=== PATIENT | female | born 1935 | race Caucasian/White ===

== ENCOUNTER → 2016-08-24 | Outpatient (REF) | payer MEDICARE ==
[2016-08-24 15:40] LABS: BASOPHILS % (AUTO) 0 % (0-2); EOSINOPHILS # (AUTO) 0.3 10^3uL; EOSINOPHILS % (AUTO) 2 % (0-4); LYMPHOCYTES # (AUTO) 3.4 X10^3; MEAN CORPUSCULAR HGB CONC 33.1 g/dL (31.0-37.0); MEAN CORPUSCULAR VOLUME 88 FL (80-100); MEAN PLATELET VOLUME 11.1 FL (6.0-9.5); MONOCYTES # (AUTO) 1.4 X10^3; MONOCYTES % (AUTO) 11 % (3-11); NEUTROPHILS # (AUTO) 7.8 X10^3; NEUTROPHILS % (AUTO) 60 % (51-67); PLATELET COUNT 345 10^3uL (150-450); WHITE BLOOD COUNT 12.89 10^3uL (4.0-11.0)
== END ==
LOC: LAB 14:51
PROVIDERS: ATTEND Internal Medicine
DX: R05 Cough (principal)
CPT/HCPCS: 80048; 85025; 86140

== ENCOUNTER → 2016-09-21 | Outpatient (CLI) | payer MEDICARE ==
[~2016-09-21] MED LIST: AC325T PO; ALEN70TA47 PO; ASP81CT PO; ASPI-818 PO; ATOR10TA56 PO; CALC500T3 PO; CEFD300C PO; CHOL10002 PO; CYAN10004 IM; FURO20TA4 PO; GEMF600T3 PO; GUAI-689 PO; IBUP-30 PO; LOPE2CAP29 PO; LORA10TA76 PO; LSNP10T PO; METF500T4 PO; METH1ADH5 TP; NAPR220T76 PO; OMEP20CA6 PO; OMG1KC PO; RANI150T11 PO; TRIA1TAB42 PO; TRIA1TAB5 PO; VIT1CAPS43 PO
[2016-09-21 09:32] LABS: MEAN CORPUSCULAR HEMOGLOBIN 28.3 PG (26.0-34.0); MEAN CORPUSCULAR HGB CONC 32.2 g/dL (31.0-37.0); MEAN CORPUSCULAR VOLUME 88 FL (80-100); MEAN PLATELET VOLUME 9.9 FL (6.0-9.5); PLATELET COUNT 390 10^3uL (150-450); WHITE BLOOD COUNT 6.12 10^3uL (4.0-11.0)
[2016-09-21 09:40] LABS: BAND NEUTROPHILS % 0 % (0-6); SEGMENTED NEUTROPHILS % 40 % (51-67)
[2016-09-21 09:41] LABS: EOSINOPHILS % 0 % (0-4); LYMPHOCYTES # 3.6 #; MONOCYTES # 0.1 #; MONOCYTES % 1 % (3-11); RBC MORPH NORMAL (NORMAL); TOTAL CELLS COUNTED 100
[2016-09-21 10:20] LABS: ALBUMIN 4.1 g/dL (3.4-5.0); CALCULATED IONIZED CALCIUM 4.4 mg/dL (3.8-4.6); TOTAL PROTEIN 7.3 g/dL (6.4-8.5)
== END ==
LOC: LAB 09:15
PROVIDERS: ATTEND Internal Medicine
DX: Z00.00 Encounter for general adult medical examination without abnormal findings (principal); E11.9 Type 2 diabetes mellitus without complications; I10 Essential (primary) hypertension; E78.4 Other hyperlipidemia
CPT/HCPCS: 36415; 80053; 80061; 82043; 83036; 84443; 85025

== ENCOUNTER → 2016-10-05 | Outpatient (CLI) | payer MEDICARE ==
--- NOTE | 2016-10-05 16:53 | Diagnostic Imaging Report ---
INDICATION: 81-year-old postmenopausal female for screening osteoporosis. COMPARISON: 09/29/2014 TECHNIQUE: DEXA of the lumbar spine and bilateral hips was performed. FINDINGS: The L2-L4 vertebrae were used for assessment of the lumbar spine, as L1 was excluded to remain consistent with prior examination. The bone mineral density for the total lumbar spine is 1.355 g/cm2, and the T score is 1.3, and Z-score is 3.1 . The left femoral neck has a bone density of 0.793 g/cm2, and the T score is -1.6, and Z-score is 0.4 . The right femoral neck has a bone density of 0.800 g/cm2, and the T score is -1.5, and Z-score is 0.4 . There has been no statistically significant change in the bone mineral density of the lumbar spine or hips since prior examination. IMPRESSION: 1. Osteopenia (low bone mass). 2. No significant change in bone mineral density since prior examination. 3. Consider followup DEXA in 12 months to reassess bone mineral density. Dictated by: Dictated on workstation # [id number]
== END ==
LOC: RAD 13:35
PROVIDERS: ATTEND Internal Medicine
DX: M85.88 Other specified disorders of bone density and structure, other site (principal)
CPT/HCPCS: 77080